=== PATIENT | female | born 1965 | race Hispanic/Latino ===

== ENCOUNTER 2018-01-03 08:08 | Day surgery (SDC) | payer BC ==
[2017-12-30 10:37] VITALS: BMI 20.6
[2018-01-03] MEDS ORDERED: Lidocaine 1% Inj (20ml) ONE (09:07)
[2018-01-03] MEDS ORDERED: Propofol 10 mg/ml Inj (20 ML) ONE ×2 (09:07→09:32)
[2018-01-03] MEDS ORDERED: ePHEDrine 50 mg/ml Inj ONE (09:31)
[2018-01-03] MEDS ORDERED: Sodium Chloride 0.9% 1,000 ML IV SCH (10:00)
[2018-01-03 10:24] VITALS: O2SAT 99
[2018-01-03 13:51] VITALS: BP 116/49; PULSE 69; RESP 16; TEMP 97.7
== END 2018-01-03 11:55 | disposition home or self-care (01) ==
LOC: ENDO 08:08
PROVIDERS: ATTEND Internal Medicine Gastroenterology
DX: K21.0 Gastro-esophageal reflux disease with esophagitis (principal); K31.7 Polyp of stomach and duodenum; K29.80 Duodenitis without bleeding; M54.2 Cervicalgia; K29.50 Unspecified chronic gastritis without bleeding
CPT/HCPCS: 43239; 43251; 88305; 88342; J2704; J7030; J7040

== ENCOUNTER 2018-07-11 09:07 | Day surgery (SDC) | payer BC ==
[2018-07-08 16:08] VITALS: BMI 21.0
[2018-07-11] MEDS ORDERED: Midazolam 2 MG/2 ML VIAL ONE (11:08)
[2018-07-11] MEDS ORDERED: Propofol 10 mg/ml Inj (20 ML) ONE (11:08)
[2018-07-11] MEDS ORDERED: Sodium Chloride 0.9% 1,000 ML IV SCH (12:00)
[2018-07-11 16:57] VITALS: BP 99/65; PULSE 54; RESP 18; TEMP 98.1; O2SAT 100
== END 2018-07-11 13:35 | disposition home or self-care (01) ==
LOC: ENDO 09:07
PROVIDERS: ATTEND Internal Medicine Gastroenterology
DX: Z12.11 Encounter for screening for malignant neoplasm of colon (principal); K64.0 First degree hemorrhoids
CPT/HCPCS: 45378; J2001; J2250; J2704; J7030; J7040